=== PATIENT | male | born 1985 | race Caucasian/White ===

== ENCOUNTER 2018-09-07 20:07 | Emergency (ER) | payer MEDICAID ==
[2018-09-07 20:54] LABS: SQUAMOUS EPITHIAL < 1 /hpf (0-5); URINE BILIRUBIN 1+ (NEGATIVE); URINE BLOOD 2+ (NEGATIVE); URINE CLARITY Clear (Clear); URINE COLOR Amber (YELLOW); URINE GLUCOSE (UA) NORMAL (Normal); URINE LEUKOCYTE ESTERASE NEG Leu/uL (Negative); URINE PROTEIN 2+ mg/dL (NEGATIVE)
--- NOTE | 2018-09-07 21:23 | C.PDOC ---
History Of Present Illness 33 year old male presents to the emergency department with complaints of pain in his lower back since yesterday. Patient reports a history of heavy lifting, but denies fall or injury. Patient states that the pain is radiating to both of his lower legs. He denies urinary symptoms and abdominal pain. Patient also complains of intermittent headache, which has since resolved. Patient states that he took Ibuprofen earlier today with minimal relief. Time Seen by Provider: 09/07/18 20:30 Chief Complaint (Nursing): Back Pain History Per: Patient History/Exam Limitations: no limitations Onset/Duration Of Symptoms: Days (1) Current Symptoms Are (Timing): Still Present Quality Of Discomfort: "Pain" Associated Symptoms: denies: Incontinence, New Weakness, New Numbness Past Medical History Reviewed: Historical Data, Nursing Documentation, Vital Signs Vital Signs: Last Vital Signs Temp 99.3 F 09/07/18 20:12 Pulse 120 H 09/07/18 20:12 Resp 18 09/07/18 20:12 BP 144/98 H 09/07/18 20:12 Pulse Ox 100 09/07/18 20:12 - Medical History PMH: No Chronic Diseases Surgical History: No Surg Hx Family History: States: No Known Family Hx - Social History Hx Alcohol Use: No Hx Substance Use: No - Immunization History Hx Tetanus Toxoid Vaccination: No Hx Influenza Vaccination: Yes Hx Pneumococcal Vaccination: No Review Of Systems Except As Marked, All Systems Reviewed And Found Negative. Constitutional: Negative for: Fever, Chills Genitourinary: Negative for: Dysuria, Frequency, Incontinence Musculoskeletal: Positive for: Back Pain, Leg Pain Neurological: Negative for: Weakness, Numbness Physical Exam - Physical Exam Appears: Non-toxic, No Acute Distress Skin: Normal Color, Warm, Dry Head: Atraumatic, Normacephalic Eye(s): bilateral: Normal Inspection, PERRL, EOMI Neck: Normal, Supple Chest: Symmetrical, No Tenderness Cardiovascular: Rhythm Regular (tachycardic), No Murmur Respiratory: Normal Breath Sounds, No Rales, No Rhonchi, No Wheezing Back: Paraspinal Tenderness (bilaterally, right greater than left), No Straight Leg Raising Extremity: Normal ROM Neurological/Psych: Oriented x3, Normal Speech, Normal Cognition ED Course And Treatment - Laboratory Results Result Diagrams: 09/07/18 21:52 09/07/18 21:52 O2 Sat by Pulse Oximetry: 100 (RA) Pulse Ox Interpretation: Normal Progress Note: Plan: Flexeril 10mg PO. Toradol 30mg IM. XR LS Spine. Urinalysis. Pt with hematuria on UA, Abd/ pelvis CT will be ordered. Labs and Abd /pelvis CT were reviewed and d/w pt. Pt with pain improvement, VSS. Return discussion were discussed with pt who acknowledged understanding Reevaluation Time: 23:06 Reassessment Condition: Improved Disposition - Disposition Referrals: Fouzia Rios MD [Staff Provider] - Disposition: HOME/ ROUTINE Disposition Time: 23:16 Condition: STABLE Additional Instructions: Take meds as directed Increased PO fluids Follow up with PMD in 2days Return to ER if severe pain, high fever, vomiting or worse Prescriptions: Cyclobenzaprine [Cyclobenzaprine HCl] 10 mg PO HS #10 tab Ibuprofen [Motrin] 600 mg PO Q6H #20 tab Instructions: Low Back Pain (DC), Blood in the Urine (Hematuria), Adult (DC) Forms: [employer] ([place]) - Clinical Impression Clinical Impression: Low back pain, Hematuria - 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 - Scribe Statement The provider has reviewed the documentation as recorded by the Scribe (Braulio Lane) All medical record entries made by the Scribe were at my direction and personally dictated by me. I have reviewed the chart and agree that the record accurately reflects my personal performance of the history, physical exam, medical decision making, and the department course for this patient. I have also personally directed, reviewed, and agree with the discharge instructions and disposition.
[2018-09-07 21:30] VITALS: BP 124/83; RESP 20
[2018-09-07] MEDS ORDERED: Sodium Chloride 0.9% 500 ML IV ONE ×2 (21:41→21:56)
[2018-09-07 22:02] LABS: BASO % 0.2 % (0.0-2.0); HEMOGLOBIN 14.1 g/dL (12.0-18.0); LYMPH # 1.5 K/uL (1.0-4.3); LYMPH % 15.1 % (20.0-40.0); MEAN CELL VOLUME 72.7 fL (80.0-94.0); MEAN CORPUSCULAR HEMOGLOBIN 23.4 pg (27.0-31.0); MEAN CORPUSCULAR HGB CONC 32.1 g/dL (33.0-37.0); MEAN PLATELET VOLUME 11.6 fL (7.2-11.7); MONO # 1.3 K/uL (0.0-0.8); MONO % 12.6 % (0.0-10.0); NEUT # 7.4 K/uL (1.8-7.0); NEUT % 72.1 % (50.0-75.0); RBC 6.05 Mil/uL (4.40-5.90); WHITE BLOOD COUNT 10.2 K/uL (4.8-10.8)
[2018-09-07 22:14] LABS: ALB/GLOB RATIO 1.5 (1.0-2.1); ALT/SGPT 46 U/L (21-72); AST/SGOT 25 U/L (17-59); BLOOD UREA NITROGEN 10 mg/dL (9-20); CALCIUM 9.4 mg/dl (8.6-10.4); GFR NON-AFRICAN AMERICAN > 60
[2018-09-07 23:14] VITALS: PULSE 102; TEMP 99.8
[2018-09-07 23:16] VITALS: O2SAT 100
--- NOTE | 2018-09-08 10:00 | RAD ---
Date of service: 09/07/2018 PROCEDURE: Radiographs of the Lumbar Spine. HISTORY: pain to lower back COMPARISON: No prior. FINDINGS: BONES: There is normal alignment of the lumbar vertebral bodies. There is normal lumbar lordosis. There is no acute fracture or spondylolisthesis. There is an apparent lucency and mild sclerosis at the pars interarticularis at L5. DISC SPACES: The disc heights are maintained. OTHER FINDINGS: The sacroiliac joints are normal. There are no pathologic soft tissue calcifications IMPRESSION: Apparent lucency and mild sclerosis at the pars interarticularis at L5 may represent age indeterminate pars interarticularis defects. No spondylolisthesis. If clinically indicated, correlation with dedicated coned-down oblique radiographs, MRI or CT scan may be performed. The final report is tagged to the PA review folder.
--- NOTE | 2018-09-08 10:28 | CT ---
PROCEDURE: CT Abdomen and Pelvis without Oral or IV contrast. HISTORY: right flank pain, hematuria COMPARISON: None available. TECHNIQUE: Contiguous axial images of the abdomen and pelvis. No oral or IV contrast administered. Coronal and Sagittal reformats generated and reviewed. Radiation dose: Total exam DLP = 572.83 mGy-cm. This CT exam was performed using one or more of the following dose reduction techniques: Automated exposure control, adjustment of the mA and/or kV according to patient size, and/or use of iterative reconstruction technique. FINDINGS: There is limited evaluation of the solid organs without the administration of IV contrast. LOWER THORAX: No visible consolidation, pleural effusion, or pneumothorax. Small hiatal hernia/distal esophageal wall thickening. LIVER: Unremarkable unenhanced appearance. GALLBLADDER AND BILE DUCTS: Unremarkable unenhanced appearance. PANCREAS: Unremarkable unenhanced appearance. SPLEEN: Unremarkable unenhanced appearance. ADRENALS: Unremarkable unenhanced appearance. KIDNEYS AND URETERS: No hydronephrosis or obstructing renal calculus. BLADDER: Decompressed urinary bladder precludes adequate evaluation. REPRODUCTIVE: Unremarkable. APPENDIX: The appendix appears within normal limits of caliber. No secondary signs of acute appendicitis. BOWEL: The stomach is nondistended. Lack of oral contrast limits evaluation for bowel pathology. The bowel loops appear within normal limits of caliber without evidence of intestinal obstruction. PERITONEUM: No significant free fluid. No definite free air. LYMPH NODES: No bulky lymphadenopathy identified. VASCULATURE: No aortic atherosclerotic calcifications appreciated. No aortic aneurysm. BONES: No acute osseous abnormality is detected. OTHER FINDINGS: Small fat containing umbilical hernia. IMPRESSION: No acute intra-abdominal or intrapelvic pathology identified. Incidental findings as above. Preliminary impression was provided by Jelli.
== END 2018-09-07 23:29 | disposition home or self-care (01) ==
LOC: C.ER 20:07
DX: M54.5 Low back pain (principal); R31.9 Hematuria, unspecified
CPT/HCPCS: 72100; 74176; 80053; 81001; 85025; 87086; 96361; 96372; 96374; 99284; J1885; J7040

== ENCOUNTER 2018-09-11 17:16 | Emergency (ER) | payer MEDICAID ==
[2018-09-11 17:21] VITALS: TEMP 98
[2018-09-11] MEDS ORDERED: Dexamethasone 4 mg/1 ml IM STA (17:36)
[2018-09-11] MEDS ORDERED: Apap-Butalbital-Caffeine 325-50-40mg Tab PO STA (17:37)
[2018-09-11] MEDS ORDERED: Dexamethasone 4 mg/1 ml ONE (17:44)
--- NOTE | 2018-09-11 17:45 | C.PDOC ---
History Of Present Illness Patient complains of pounding headache for the past few days. He also reports left leg pain. He states he was seen in ED few days ago for back pain and leg pain and given medications. He took the ibuprofen with some relief but pain returns after few hours. Denies any new injury. Time Seen by Provider: 09/11/18 17:25 Chief Complaint (Nursing): Headache History Per: Patient History/Exam Limitations: no limitations Onset/Duration Of Symptoms: Days (5) Current Symptoms Are (Timing): Still Present Quality: "Pain", Other (pounding) Preceeding Symptoms: denies: Visual Disturbances Associated Symptoms: denies: Nausea, Vomiting, Extremity Weakness Past Medical History Reviewed: Historical Data, Nursing Documentation, Vital Signs Vital Signs: Last Vital Signs Temp 98 F 09/11/18 17:19 Pulse 90 09/11/18 17:19 Resp 20 09/11/18 17:19 BP 133/89 09/11/18 17:19 Pulse Ox 100 09/11/18 17:19 - Medical History PMH: No Chronic Diseases Surgical History: No Surg Hx Family History: States: Unknown Family Hx - Social History Hx Alcohol Use: No Hx Substance Use: No - Immunization History Hx Tetanus Toxoid Vaccination: No Hx Influenza Vaccination: Yes Hx Pneumococcal Vaccination: No Review Of Systems Constitutional: Negative for: Fever, Weakness Eyes: Negative for: Vision Change, Redness ENT: Negative for: Ear Pain, Nose Congestion, Throat Pain Cardiovascular: Negative for: Palpitations Respiratory: Negative for: Cough, Shortness of Breath Gastrointestinal: Negative for: Abdominal Pain Musculoskeletal: Positive for: Back Pain, Leg Pain. Negative for: Neck Pain, Arm Pain Neurological: Positive for: Headache. Negative for: Weakness, Numbness, Dizziness Physical Exam - Physical Exam Appears: Non-toxic, No Acute Distress Skin: Warm, Dry Head: Atraumatic, Normacephalic, No Tenderness, No Swelling Eye(s): bilateral: Normal Inspection, PERRL, EOMI Nose: Normal Oral Mucosa: Moist Neck: Normal ROM, No Midline Cervical Tenderness, No Paracervical Tenderness, No Step Off Deformity Chest: Symmetrical Cardiovascular: Rhythm Regular, No Murmur Respiratory: Normal Breath Sounds, No Wheezing Extremity: Bilateral: Atraumatic, Normal Color And Temperature, Normal ROM Neurological/Psych: Oriented x3, Normal Speech Gait: Steady ED Course And Treatment O2 Sat by Pulse Oximetry: 100 Medical Decision Making Medical Decision Making: Patient treated with Decadron and Fioricet PO. Patient appears well nontoxic and in no distress. He has no fever, nuchal rigidity and normal neuro exam. Re commend rest, fluids and analgesics. Disposition Counseled Patient/Family Regarding: Diagnosis, Need For Followup, Rx Given - Disposition Referrals: Fouzia Rios MD [Staff Provider] - Disposition: HOME/ ROUTINE Disposition Time: 18:19 Condition: GOOD Prescriptions: Acetaminophen/Butalbital/Caf [Fioricet] 1 tab PO TID PRN #20 tab PRN Reason: Headache Instructions: Tension Headache (DC) Forms: [facility] [employer] ([place]) - POA Present On Arrival: None - Clinical Impression Clinical Impression: Headache
[2018-09-11] MEDS ORDERED: Apap-Butalbital-Caffeine 325-50-40mg Tab ONE (17:46)
[2018-09-11 18:24] VITALS: BP 131/80; PULSE 68; RESP 18; O2SAT 98
== END 2018-09-11 18:24 | disposition home or self-care (01) ==
LOC: C.ER 17:16
DX: R51 Headache (principal)
CPT/HCPCS: 96372; 99284; J1100